=== PATIENT | male | born 1945 | race Caucasian/White ===

== ENCOUNTER 2020-11-01 13:25 | Inpatient (IN) | payer OTHER, MEDICARE ==
[~2020-11-01] VITALS: Ht 172.7 cm; Wt 79.4 kg
[~2020-11-01 13:25] MED LIST: CARV6.25 PO; CELE200 PO; CYCL10 PO; HYDCHL25 PO; METF500 PO; SIMV40 PO
[2020-11-01] MEDS ORDERED: ASCO500 PO (15:50)
[2020-11-01] MEDS ORDERED: Aspirin EC81 MG PO (15:50)
[2020-11-01] MEDS ORDERED: THERA-D2000 UNIT PO (15:51)
[2020-11-01] MEDS ORDERED: CARV3.125 PO (15:51)
[2020-11-01] MEDS ORDERED: Vitamin B-121000 MCG PO (15:51)
[2020-11-01] MEDS ORDERED: JARDIANCE25 MG PO (15:51)
[2020-11-01] MEDS ORDERED: FAMO40 PO (15:52)
[2020-11-01] MEDS ORDERED: FERROUS GLUCON324 M2 PO (16:05)
[2020-11-01] MEDS ORDERED: HYDROCHLOROTH12.5 MG PO (16:05)
[2020-11-01] MEDS ORDERED: GABA300 PO (16:05)
[2020-11-01] MEDS ORDERED: MAGNESIUM OXID500 MG PO (16:06)
[2020-11-01] MEDS ORDERED: METF500 PO (16:06)
[2020-11-01 16:22] LABS: BASOPHILS ABSOLUTE AUTO 0.06 K/mm3 (0.00-0.23); BASOPHILS PERCENT AUTO 0 % (0-2); EOSINOPHILS ABSOLUTE AUTO 0.02 K/mm3 (0.00-0.68); EOSINOPHILS PERCENT AUTO 0 % (0-6); Hematocrit 43.8 % (37.0-53.0); Hemoglobin 14.5 g/dL (13.5-17.5); IMMATURE GRAN ABSOLUTE AUTO 0.18 K/mm3 (0.00-0.10); IMMATURE GRAN PERCENT AUTO 1 % (0-1); LYMPHOCYTES ABSOLUTE AUTO 1.06 K/mm3 (0.84-5.20); LYMPHOCYTES PERCENT AUTO 5 % (21-46); MONOCYTES ABSOLUTE AUTO 1.73 K/mm3 (0.16-1.47); MONOCYTES PERCENT AUTO 8 % (4-13); Mean Corpuscular HGB 28.7 pg (26.0-34.0); Mean Corpuscular HGB Conc 33.1 g/dL (31.5-36.5); Mean Corpuscular Volume 87 fL (80-100); Mean Platelet Volume 11.5 fL (9.1-12.4); NEUTROPHILS ABSOLUTE AUTO 18.18 K/mm3 (1.96-9.15); NEUTROPHILS PERCENT AUTO 86 % (41-73); Platelet Count 174 K/mm3 (150-400); RDW Coefficient Variation 14.5 % (11.7-14.2); Red Blood Cell Count 5.06 M/mm3 (4.30-5.90); White Blood Cell Count 21.23 K/mm3 (4.00-11.30)
[2020-11-01 16:33] LABS: Alanine Aminotransfer (ALT/SGP 17 U/L (12-78); Albumin, Blood 3.8 g/dL (3.4-5.0); Albumin/Globulin Ratio 0.9 (0.8-1.8); Alk Phos 53 U/L (50-136); Anion Gap 13 mmol/L (6-16); Aspartate Aminotrans (AST/SGOT 12 U/L (12-37); Blood Urea Nitrogen 17 mg/dL (8-24); Bun/Creatinine Ratio 20.6 (12.0-20.0); CO2, Blood 26 mmol/L (21-32); Calcium, Blood 10.1 mg/dL (8.5-10.1); Chloride, Blood 96 mmol/L (98-108); Creatinine, Blood 0.82 mg/dL (0.60-1.20); Globulin, Blood 4.2 g/dL (2.2-4.0); Glomerular Filtration Rate >60 (60-); Glucose, Blood 201 mg/dL (70-99); Potassium, Blood 3.4 mmol/L (3.5-5.5); Sodium, Blood 135 mmol/L (136-145)
[2020-11-01 17:53] LABS: International Normalized Ratio 1.07; Prothrombin Time Results 11.4 Sec (9.7-11.5)
[2020-11-01] MEDS ORDERED: OMEP20ER PO (21:20)
[2020-11-01 21:58] LABS: Source, Urine Clean Catch
[2020-11-01 22:02] LABS: Bilirubin, Urine Neg (Neg); Blood, Urine 2+ (Neg); Glucose Qualitative, Urine 4+ (Neg); Ketones, Urine 4+ (Neg); Leukocyte Esterase, Urine Neg (Neg); Nitrite, Urine Neg (Neg); Protein, Urine 2+ (Neg); Specific Gravity, Urine 1.015 (1.003-1.022); Urobilinogen, Urine NORM (Normal)
[2020-11-01 22:03] LABS: Appearance, Urine Clear (Clear); Color, Urine Yellow (P-Yellow)
[2020-11-01 22:05] LABS: Influenza A, PCR Negative (NEGATIVE); Influenza B, PCR Negative (NEGATIVE); Resp Syncytial Virus, PCR Negative (NEGATIVE); SARS-Cov-2 (COVID-19) PCR, MMC Negative (NEGATIVE)
[2020-11-01 22:09] LABS: Bacteria Few /hpf; Red Blood Cells, Urine 0-2 /hpf (0-2); Squamous Epithelial Cells Not Seen /hpf (Few); White Blood Cells, Urine 0-2 /hpf (0-5)
--- NOTE | 2020-11-01 23:51 | NUR ---
ACCORDING TO PCU WORK ORDER [employer], THIS PATIENT WENT INTO ATRIAL FLUTTER FOR 5 MINUTES. THE HIGHEST RATE WAS 141 BPM IN THOSE 5 MINUTES. PATIENT WAS GIVEN AN EKG AND INCREASED OXYGEN TO 3L. PATIENT REPORTED HAVING SHORTNESS OF BREATH DURING THOSE [address] WNITERS WAS NOTIFIED AND WANTS TROPONIN LABS DRAWN WITH AM LABS. AFTER EKG PATIENT HOB WAS ALSO RAISED TO AT LEAST 30 DEGREES. PATIENT SINCE ALREADY REPORTED LESS SHORTNESS OF BREATH. CALL LIGHT WITHIN REACH.
--- NOTE | 2020-11-02 03:52 | NUR ---
SHIFT SUMMARY: CHOLECYSTITIS WITH CHOLELITHIASIS PATIENT WHILE AWAKE IS ALERT AND ORIENTED X4. HOWEVER, HE HAS BEEN TRYING TO SLEEP MAJORITY OF THE NIGHT BUT IS EASILY AROUSABLE. PATIENT IS ON 3L OXYGEN AND IS ON TELE (SEE PREVIOUS NOTE FOR MORE DETAIL). PAIN IS CONTROLLED WITH 50 MCG OF FENT. HIS RUQ IS TENDER TO TOUCH. HE IS VOIDING YELLOW URINE IN URNAL. PATIENTS FAMILY HAS BEEN NOTIFIED EARLIER IN SHIFT OF THIS NEW PLAN SINCE HE WAS SUPPOSED TO GO HOME YESTERDAY. CALL LIGHT IS WITHIN REACH. PATIENT IS CURRENTLY LAYING ON BED. HE HAS BEEN NPO SINCE MIDNIGHT. BIOX IS IN PLACE. HE IS A SBA TO BEDSIDE TO HELP USE URNAL. THE PLAN IS TO HAVE DR. HEARD COME IN TODAY TO DISCUSS POSSIBLE SOLUTIONS TO HIS PAIN, AND TO CONTINUE IV ABX AND FLUIDS.
[2020-11-02 04:49] LABS: BASOPHILS ABSOLUTE AUTO 0.03 K/mm3 (0.00-0.23); BASOPHILS PERCENT AUTO 0 % (0-2); EOSINOPHILS PERCENT AUTO 0 % (0-6); Hematocrit 38.3 % (37.0-53.0); Hemoglobin 12.7 g/dL (13.5-17.5); IMMATURE GRAN ABSOLUTE AUTO 0.21 K/mm3 (0.00-0.10); IMMATURE GRAN PERCENT AUTO 1 % (0-1); LYMPHOCYTES ABSOLUTE AUTO 0.46 K/mm3 (0.84-5.20); LYMPHOCYTES PERCENT AUTO 3 % (21-46); MONOCYTES ABSOLUTE AUTO 0.96 K/mm3 (0.16-1.47); MONOCYTES PERCENT AUTO 7 % (4-13); Mean Corpuscular HGB 29.2 pg (26.0-34.0); Mean Corpuscular HGB Conc 33.2 g/dL (31.5-36.5); Mean Corpuscular Volume 88 fL (80-100); Mean Platelet Volume 10.7 fL (9.1-12.4); NEUTROPHILS PERCENT AUTO 89 % (41-73); Platelet Count 166 K/mm3 (150-400); RDW Coefficient Variation 14.6 % (11.7-14.2); RDW Standard Deviation 47.3 fL (35.1-46.3); Red Blood Cell Count 4.35 M/mm3 (4.30-5.90); White Blood Cell Count 14.86 K/mm3 (4.00-11.30)
[2020-11-02 05:25] LABS: Anion Gap 12 mmol/L (6-16); Blood Urea Nitrogen 17 mg/dL (8-24); Bun/Creatinine Ratio 20.6 (12.0-20.0); CO2, Blood 25 mmol/L (21-32); Calcium, Blood 8.5 mg/dL (8.5-10.1); Chloride, Blood 101 mmol/L (98-108); Creatinine, Blood 0.83 mg/dL (0.60-1.20); Glomerular Filtration Rate >60 (60-); Glucose, Blood 153 mg/dL (70-99); Potassium, Blood 3.5 mmol/L (3.5-5.5); Sodium, Blood 138 mmol/L (136-145)
[2020-11-02 05:33] LABS: Troponin I 0.746 ng/mL (0.000-0.040)
--- NOTE | 2020-11-02 06:37 | NUR ---
AFTER HAVING A FLUTTER ACCORDING TO PCU BAR STAFF, PATIENT HAS BEEN SLEEPING MOST OF THE SHIFT. HE IS STILL EASILY AROUSABLE WHEN HE WAS SLEEPING. HE DID NOT COMPLAIN OF SHORTNESS OF BREATH OR CHEST PAIN/PRESSURE THE REST OF THE NIGHT. HE DID HAVE A CRITICAL LAB VALUE OF 0.746 OF TROPONIN COME IN FROM LAB AT 0530 TODAY. HOSPITALIST WAS NOTIFIED AND PROVIDED NO FURTHER INSTRUCTIONS/ORDERS WHEN CALLED. PATIENT IS CURRENTLY SLEEPING LAYING DOWN IN BED. CALL LIGHT WITHIN REACH. CALLS APPROPRIATELY.
--- NOTE | 2020-11-02 14:22 | NUR ---
Echocardiogram completed.
--- NOTE | 2020-11-02 15:00 | NUR ---
PT [facility]IV[facility] WITH LEFT RADIAL TR BAND. SITE WITH NO BLEEDING, BRUISING OR SWELLING NOTED. PLAN FOR TRANSFER TO [facility]. AWAITING WORD FROM FACILITY FOR BED PLACEMENT. DR AND STAFF ATTEMPTED TO CONTACT PT'S FAMILY TO UPDATE FURTHER. VSS AT THIS TIME.
--- NOTE | 2020-11-02 18:41 | NUR ---
CONTACTED PT'S SON STEFFANY AND GAVE HIM AN UPDATE OF WHAT WAS GOING ON AND THE PLAN TO TRANSFER PT TO [facility] [place]. PT'S TR BAND DEFLATED WITH NO SIGN OF BRUISING OR BLEEDING. BAND REMAINS IN PLACE TO WAIT THE ALOTTED HOUR. REPORT CALLED TO [facility] FOR BRITT HEADLEY. BRITT IS AWARE OF PT'S HISTORY AND PLAN FOR CABG AND POSSIBLE DRAIN FOR CHOLECYSTITIS. HEPARIN GTT RUNNING PER DR CANTU'S INSTRUCTION AND PHARMACY RECOMMENDATION. VSS. PT TRANSFERRED TO [facility] AND TRANSPORTED OUT VIA EMS STAFF.
== END 2020-11-02 18:35 | disposition short-term general hospital (02) | DRG 871 ==
LOC: ER 13:25 → SURS 13:26 → PCU 11-02 14:20
PROVIDERS: Nurse Practitioner Acute Care; Physician Assistant; ADMIT Internal Medicine
PROC: B2111ZZ Fluoroscopy of Multiple Coronary Arteries using Low Osmolar Contrast (ICD-10-PCS; principal; 2020-11-02)
DX: A41.9 Sepsis, unspecified organism (principal); I21.4 Non-ST elevation (NSTEMI) myocardial infarction; K81.0 Acute cholecystitis; N17.9 Acute kidney failure, unspecified; E87.1 Hypo-osmolality and hyponatremia; Z79.84 Long term (current) use of oral hypoglycemic drugs; E87.6 Hypokalemia; I25.10 Atherosclerotic heart disease of native coronary artery without angina pectoris; Z95.5 Presence of coronary angioplasty implant and graft; Z87.891 Personal history of nicotine dependence; Z79.82 Long term (current) use of aspirin; N18.30 Chronic kidney disease, stage 3 unspecified; E11.22 Type 2 diabetes mellitus with diabetic chronic kidney disease; I35.0 Nonrheumatic aortic (valve) stenosis; Z20.822 Contact with and (suspected) exposure to COVID-19
CPT/HCPCS: 0241U; 36415; 80048; 80053; 81001; 82947; 83605; 83690; 84484; 85025; 85347; 85610; 85730; 86900; 86901; 87040; 93005; 93010; 93306; 93454; 94762; 96365; 96366; 96367; 96375; 96376; 99152; 99153; 99285-25; A9270; C1769; C1894; G0378; J0295; J1644; J2250; J2270; J2405; J3010; J3480; J7030; J7050; Q9967

== ENCOUNTER 2020-11-21 15:17 | Inpatient (IN) | payer OTHER, MEDICARE ==
[~2020-11-21] VITALS: Ht 172.7 cm; Wt 69.5 kg
[~2020-11-21 15:17] MED LIST changes: +ASCO500 PO; +Aspirin EC81 MG PO; +CARV3.125 PO; +FAMO40 PO; +FERROUS GLUCON324 M2 PO; +GABA300 PO; +HYDROCHLOROTH12.5 MG PO; +JARDIANCE25 MG PO; +MAGNESIUM OXID500 MG PO; +OMEP20ER PO; +THERA-D2000 UNIT PO; +Vitamin B-121000 MCG PO
[2020-11-21 15:50] LABS: BASOPHILS ABSOLUTE AUTO 0.12 K/mm3 (0.00-0.23); BASOPHILS PERCENT AUTO 1 % (0-2); EOSINOPHILS ABSOLUTE AUTO 0.23 K/mm3 (0.00-0.68); EOSINOPHILS PERCENT AUTO 2 % (0-6); Hematocrit 31.8 % (37.0-53.0); Hemoglobin 10.2 g/dL (13.5-17.5); IMMATURE GRAN ABSOLUTE AUTO 0.04 K/mm3 (0.00-0.10); IMMATURE GRAN PERCENT AUTO 0 % (0-1); LYMPHOCYTES ABSOLUTE AUTO 1.73 K/mm3 (0.84-5.20); LYMPHOCYTES PERCENT AUTO 17 % (21-46); MONOCYTES ABSOLUTE AUTO 0.72 K/mm3 (0.16-1.47); MONOCYTES PERCENT AUTO 7 % (4-13); Mean Corpuscular HGB 29.4 pg (26.0-34.0); Mean Corpuscular HGB Conc 32.1 g/dL (31.5-36.5); Mean Corpuscular Volume 92 fL (80-100); NEUTROPHILS ABSOLUTE AUTO 7.36 K/mm3 (1.96-9.15); NEUTROPHILS PERCENT AUTO 72 % (41-73); Platelet Count 333 K/mm3 (150-400); RDW Coefficient Variation 15.3 % (11.7-14.2); RDW Standard Deviation 50.5 fL (35.1-46.3); Red Blood Cell Count 3.47 M/mm3 (4.30-5.90)
[2020-11-21 18:23] LABS: Albumin, Blood 3.3 g/dL (3.4-5.0); Albumin/Globulin Ratio 0.9 (0.8-1.8); Bilirubin, Total 0.6 mg/dL (0.1-1.0); Bun/Creatinine Ratio 17.5 (12.0-20.0); Calcium, Blood 9.1 mg/dL (8.5-10.1); Creatinine, Blood 2.86 mg/dL (0.60-1.20); Globulin, Blood 3.8 g/dL (2.2-4.0); Potassium, Blood 5.7 mmol/L (3.5-5.5); Total Protein, Blood 7.1 g/dL (6.4-8.2)
[2020-11-21] MEDS ORDERED: ATOR40TA PO (18:50)
[2020-11-21] MEDS ORDERED: FUROSEMIDE40 MG PO (18:50)
[2020-11-21] MEDS ORDERED: LISI5 PO (18:51)
[2020-11-21] MEDS ORDERED: Potassium Chlo20 ME1 PO (18:51)
[2020-11-22 05:37] LABS: BASOPHILS ABSOLUTE AUTO 0.08 K/mm3 (0.00-0.23); BASOPHILS PERCENT AUTO 1 % (0-2); EOSINOPHILS ABSOLUTE AUTO 0.34 K/mm3 (0.00-0.68); EOSINOPHILS PERCENT AUTO 4 % (0-6); Hematocrit 28.8 % (37.0-53.0); Hemoglobin 9.2 g/dL (13.5-17.5); IMMATURE GRAN ABSOLUTE AUTO 0.04 K/mm3 (0.00-0.10); IMMATURE GRAN PERCENT AUTO 0 % (0-1); LYMPHOCYTES ABSOLUTE AUTO 2.01 K/mm3 (0.84-5.20); LYMPHOCYTES PERCENT AUTO 22 % (21-46); MONOCYTES ABSOLUTE AUTO 0.69 K/mm3 (0.16-1.47); MONOCYTES PERCENT AUTO 7 % (4-13); Mean Corpuscular HGB 29.3 pg (26.0-34.0); Mean Corpuscular HGB Conc 31.9 g/dL (31.5-36.5); Mean Corpuscular Volume 92 fL (80-100); Mean Platelet Volume 10.6 fL (9.1-12.4); NEUTROPHILS ABSOLUTE AUTO 6.18 K/mm3 (1.96-9.15); NEUTROPHILS PERCENT AUTO 66 % (41-73); Platelet Count 270 K/mm3 (150-400); RDW Coefficient Variation 15.1 % (11.7-14.2); RDW Standard Deviation 50.6 fL (35.1-46.3); Red Blood Cell Count 3.14 M/mm3 (4.30-5.90); White Blood Cell Count 9.34 K/mm3 (4.00-11.30)
[2020-11-22 05:59] LABS: Albumin, Blood 2.9 g/dL (3.4-5.0); Anion Gap 10 mmol/L (6-16); Blood Urea Nitrogen 58 mg/dL (8-24); Bun/Creatinine Ratio 19.5 (12.0-20.0); CO2, Blood 23 mmol/L (21-32); Calcium, Blood 8.7 mg/dL (8.5-10.1); Chloride, Blood 106 mmol/L (98-108); Creatinine, Blood 2.97 mg/dL (0.60-1.20); Glomerular Filtration Rate 22 (60-); Glucose, Blood 96 mg/dL (70-99); Phosphorus, Blood 5.4 mg/dL (2.5-4.9); Potassium, Blood 4.5 mmol/L (3.5-5.5); Sodium, Blood 139 mmol/L (136-145)
--- NOTE | 2020-11-22 07:25 | NUR ---
pt new admit at 2154. a/o x4. pt denies sob, dizziness and pain. tele running sr in the 70's per television production assistant josette. pt hypotensive upon admit. hospitalist key ordered 500ml boulus. bp has come up after boulous given. currently has cont ns at 75ml/hr. pt has gallbladder drain and drainage bag on right upper abd. it is draining dark green drainage. drainage site is c.d.i with dressing secured around tube site. pt is standby assist to the bathroom. call light within reach. report given to oncoming rn.
--- NOTE | 2020-11-22 19:32 | NUR ---
SHIFT SUMMARY: NO ACUTE CHANGES TO REPORT THIS SHIFT. PT A&O; TJ AND COOPERATIVE WITH CARE. NO C/O PAIN THIS SHIFT. BILE DRAIN IN PLACE TO RUQ; NO DRAINAGE NOTED THIS SHIFT; PER HOSPITALIST (DR HOUSTON) SURGICAL CONSULT PLACED (DR ESQUIVEL-DATA CONVERSION DEVELOPER); AWAITING SURGICAL EVAL. REHYDRATION CONTINUING. REPORT GIVEN TO ONCOMING RN.
[2020-11-23 04:51] LABS: Bun/Creatinine Ratio 22.1 (12.0-20.0); Calcium, Blood 9.1 mg/dL (8.5-10.1); Creatinine, Blood 2.44 mg/dL (0.60-1.20); Potassium, Blood 4.5 mmol/L (3.5-5.5)
--- NOTE | 2020-11-23 05:39 | NUR ---
SHIFT SUMMARY NO ACUTE CHANGES T/O SHIFT, CALM AND COOPERATIVE WITH CARE, A&Ox4. PT SLEPT T/O MOST OF THE NIGHT AND APPEARED TO BE IN NO DISTRESS. PT CONCERNED REGARDING HIS GALLBLADDER DRAIN NOT DRAINING. CYNTHIA WAS NOTIFIED BY DAY SHIFT NURSE AND HE HAS STILL YET TO COME SEE PT, WILL INFORM DAY SHIFT NURSE TO FOLLOW UP. PT CURRENTLY HAS NS RUNNING @ 75 ML/HR. PT IS SLEEPING AT THIS TIME, APPEARS TO BE IN NO DISTRESS. CALL LIGHT WITHIN REACH.
--- NOTE | 2020-11-23 18:46 | NUR ---
SHIFT SUMMARY- PT IS A/O, PLESANT AND COOPERATIVE. HE IS EATING AND DRINKING WELL. DR. JIMENEZ CONSULTED AND REPORTED THAT HE WAS NOT CONCERNED ABOUT THE BILE DRAIN AT THIS TIME. WILL CONTINUE TO MONITOR. HIS BLOOD PRESSURES HAVE REMAINED STABLE THIS SHIFT. HE IS RECIEVING IV FLUID THERAPY. HE IS USING THE URINAL AT BEDSIDE. HIS DAUGHTER VISITED THIS SHIFT. HIS BED IS IN THE LOW POSITION AND CALL LIGHT IS WITHIN REACH.
--- NOTE | 2020-11-24 04:53 | NUR ---
SHIFT SUMMARY NO ACUTE CHANGES T/O SHIFT, A&Ox4, CALM AND COOPERATIVE WITH CARE. NS RUNNING @ 75 ML/HR. NO COMPLAINTS T/O SHIFT AND APPEARED TO BE IN NO DISTRESS. PT SLEPT THROUGH MOST OF SHIFT. PT THANKFUL AND RELIEVED FOR MARITZA COMING IN EARLIER TODAY TO OBSERVE HIS GALLBLADDER DRAIN. PT POSSIBLE TO DC PENDNING RENAL LAB RESULTS. PT IS CURRENTLY RESTING IN BED WITH CALL LIGHT WITHIN REACH.
[2020-11-24 05:11] LABS: Albumin, Blood 2.9 g/dL (3.4-5.0); Albumin/Globulin Ratio 0.9 (0.8-1.8); Bilirubin, Total 0.5 mg/dL (0.1-1.0); Bun/Creatinine Ratio 22.6 (12.0-20.0); Calcium, Blood 9.4 mg/dL (8.5-10.1); Creatinine, Blood 1.55 mg/dL (0.60-1.20); Globulin, Blood 3.4 g/dL (2.2-4.0); Potassium, Blood 4.3 mmol/L (3.5-5.5); Total Protein, Blood 6.3 g/dL (6.4-8.2)
[2020-11-24] MEDS ORDERED: Vitamin B-121000 MCG PO (12:54)
[2020-11-24] MEDS ORDERED: FERSU300 PO (12:55)
--- NOTE | 2020-11-24 14:56 | NUR ---
PT DISCHARGED FROM THE UNIT. DISCHARGE INSTRUCTIONS REVIEWED. INSTRUCTED ON FOLLOW UP APTS. IV REMOVED. MEDICATIONS FAXED TO [facility]. PT LEFT VIA WHEELCHAIR. DAUGHTER TO DRIVE HOME
== END 2020-11-24 14:29 | disposition home or self-care (01) | DRG 683 ==
LOC: ER 15:17 → MEDS 21:45
PROVIDERS: Internal Medicine; Nurse Practitioner Acute Care; Physician Assistant; ADMIT Internal Medicine
DX: N17.9 Acute kidney failure, unspecified (principal); K81.0 Acute cholecystitis; T85.618A Breakdown (mechanical) of other specified internal prosthetic devices, implants and grafts, initial encounter; E11.22 Type 2 diabetes mellitus with diabetic chronic kidney disease; N18.30 Chronic kidney disease, stage 3 unspecified; E86.0 Dehydration; I25.10 Atherosclerotic heart disease of native coronary artery without angina pectoris; E11.40 Type 2 diabetes mellitus with diabetic neuropathy, unspecified; E66.9 Obesity, unspecified; K21.9 Gastro-esophageal reflux disease without esophagitis; K59.00 Constipation, unspecified; Z95.1 Presence of aortocoronary bypass graft; Z95.5 Presence of coronary angioplasty implant and graft; Z87.891 Personal history of nicotine dependence; Z79.899 Other long term (current) drug therapy; Z79.84 Long term (current) use of oral hypoglycemic drugs; Z79.82 Long term (current) use of aspirin; Z68.23 Body mass index [BMI] 23.0-23.9, adult
CPT/HCPCS: 36415; 76770; 80048; 80053; 80069; 82947; 83605; 85025; 93005; 93010; 96360; 96361; 96372; 99285-25; A9270; G0378; J1644; J7030

== ENCOUNTER 2020-11-26 12:10 | Emergency (ER) | payer OTHER, MEDICARE ==
[~2020-11-26] VITALS: Ht 172.7 cm; Wt 69.8 kg
[~2020-11-26 12:10] MED LIST changes: +ATOR40TA PO; +FERSU300 PO; +FUROSEMIDE40 MG PO; +LISI5 PO; +Potassium Chlo20 ME1 PO
[2020-11-26 12:52] LABS: BASOPHILS ABSOLUTE AUTO 0.08 K/mm3 (0.00-0.23); BASOPHILS PERCENT AUTO 1 % (0-2); EOSINOPHILS PERCENT AUTO 4 % (0-6); Hematocrit 34.5 % (37.0-53.0); Hemoglobin 10.9 g/dL (13.5-17.5); IMMATURE GRAN ABSOLUTE AUTO 0.03 K/mm3 (0.00-0.10); IMMATURE GRAN PERCENT AUTO 0 % (0-1); LYMPHOCYTES ABSOLUTE AUTO 1.55 K/mm3 (0.84-5.20); LYMPHOCYTES PERCENT AUTO 16 % (21-46); MONOCYTES ABSOLUTE AUTO 0.65 K/mm3 (0.16-1.47); MONOCYTES PERCENT AUTO 7 % (4-13); Mean Corpuscular HGB 29.2 pg (26.0-34.0); Mean Corpuscular HGB Conc 31.6 g/dL (31.5-36.5); Mean Corpuscular Volume 93 fL (80-100); Mean Platelet Volume 10.6 fL (9.1-12.4); NEUTROPHILS ABSOLUTE AUTO 7.18 K/mm3 (1.96-9.15); NEUTROPHILS PERCENT AUTO 73 % (41-73); Platelet Count 223 K/mm3 (150-400); RDW Standard Deviation 51.2 fL (35.1-46.3); Red Blood Cell Count 3.73 M/mm3 (4.30-5.90); White Blood Cell Count 9.89 K/mm3 (4.00-11.30)
[2020-11-26 13:12] LABS: Albumin, Blood 3.3 g/dL (3.4-5.0); Albumin/Globulin Ratio 0.8 (0.8-1.8); Bilirubin, Total 0.6 mg/dL (0.1-1.0); Bun/Creatinine Ratio 18.8 (12.0-20.0); Calcium, Blood 9.9 mg/dL (8.5-10.1); Creatinine, Blood 1.33 mg/dL (0.60-1.20); Globulin, Blood 3.9 g/dL (2.2-4.0); Potassium, Blood 4.8 mmol/L (3.5-5.5); Total Protein, Blood 7.2 g/dL (6.4-8.2); Troponin I 0.232 ng/mL (0.000-0.040)
[2020-11-26] MEDS ORDERED: Halcion0.25 MG PO (15:27)
== END 2020-11-26 15:55 | disposition home or self-care (01) ==
LOC: ER 12:10
PROVIDERS: Physician Assistant
DX: I95.9 Hypotension, unspecified (principal); G47.00 Insomnia, unspecified; E11.9 Type 2 diabetes mellitus without complications; I25.2 Old myocardial infarction; I25.810 Atherosclerosis of coronary artery bypass graft(s) without angina pectoris; Z95.1 Presence of aortocoronary bypass graft; Z87.891 Personal history of nicotine dependence; Z79.899 Other long term (current) drug therapy; Z79.82 Long term (current) use of aspirin
CPT/HCPCS: 36415; 71046; 80053; 84484; 85025; 93005; 93010; 96360; 96361; 99284-25; J7030

== ENCOUNTER 2020-12-17 17:49 | Emergency (ER) | payer OTHER ==
[~2020-12-17] VITALS: Ht 172.7 cm; Wt 70.8 kg
[~2020-12-17 17:49] MED LIST changes: +Halcion0.25 MG PO
[2020-12-17 19:19] LABS: BASOPHILS ABSOLUTE AUTO 0.08 K/mm3 (0.00-0.23); BASOPHILS PERCENT AUTO 1 % (0-2); EOSINOPHILS ABSOLUTE AUTO 0.91 K/mm3 (0.00-0.68); EOSINOPHILS PERCENT AUTO 12 % (0-6); Hematocrit 34.7 % (37.0-53.0); Hemoglobin 11.4 g/dL (13.5-17.5); IMMATURE GRAN ABSOLUTE AUTO 0.03 K/mm3 (0.00-0.10); IMMATURE GRAN PERCENT AUTO 0 % (0-1); LYMPHOCYTES ABSOLUTE AUTO 1.38 K/mm3 (0.84-5.20); LYMPHOCYTES PERCENT AUTO 18 % (21-46); MONOCYTES ABSOLUTE AUTO 0.68 K/mm3 (0.16-1.47); MONOCYTES PERCENT AUTO 9 % (4-13); Mean Corpuscular HGB 30.1 pg (26.0-34.0); Mean Corpuscular HGB Conc 32.9 g/dL (31.5-36.5); Mean Corpuscular Volume 92 fL (80-100); Mean Platelet Volume 10.3 fL (9.1-12.4); NEUTROPHILS ABSOLUTE AUTO 4.57 K/mm3 (1.96-9.15); NEUTROPHILS PERCENT AUTO 60 % (41-73); Platelet Count 218 K/mm3 (150-400); RDW Coefficient Variation 14.6 % (11.7-14.2); Red Blood Cell Count 3.79 M/mm3 (4.30-5.90); White Blood Cell Count 7.65 K/mm3 (4.00-11.30)
[2020-12-17 19:42] LABS: Alanine Aminotransfer (ALT/SGP 38 U/L (12-78); Albumin, Blood 3.1 g/dL (3.4-5.0); Albumin/Globulin Ratio 0.9 (0.8-1.8); Alk Phos 156 U/L (50-136); Anion Gap 2 mmol/L (6-16); Aspartate Aminotrans (AST/SGOT 24 U/L (12-37); Bilirubin, Total 0.2 mg/dL (0.1-1.0); Blood Urea Nitrogen 18 mg/dL (8-24); Bun/Creatinine Ratio 19.4 (12.0-20.0); CO2, Blood 31 mmol/L (21-32); Chloride, Blood 107 mmol/L (98-108); Creatinine, Blood 0.93 mg/dL (0.60-1.20); Globulin, Blood 3.6 g/dL (2.2-4.0); Glomerular Filtration Rate >60 (60-); Glucose, Blood 149 mg/dL (70-99); Potassium, Blood 4.3 mmol/L (3.5-5.5); Sodium, Blood 140 mmol/L (136-145); Total Protein, Blood 6.7 g/dL (6.4-8.2)
== END 2020-12-17 21:17 | disposition home or self-care (01) ==
LOC: ER 17:49
PROVIDERS: Physician Assistant
DX: R10.9 Unspecified abdominal pain (principal); E11.9 Type 2 diabetes mellitus without complications; I25.2 Old myocardial infarction; I25.810 Atherosclerosis of coronary artery bypass graft(s) without angina pectoris; Z87.891 Personal history of nicotine dependence; Z79.899 Other long term (current) drug therapy; Z79.82 Long term (current) use of aspirin
CPT/HCPCS: 36415; 74176; 80053; 85025; 99283-25

== ENCOUNTER 2021-03-17 06:47 | Emergency (ER) | payer OTHER, MEDICARE ==
[~2021-03-17] VITALS: Ht 172.7 cm; Wt 72.6 kg
[2021-03-17 07:28] LABS: Source, Urine Clean Catch
[2021-03-17 07:31] LABS: Appearance, Urine Clear (Clear); Blood, Urine Neg (Neg); Color, Urine Yellow (P-Yellow); Glucose Qualitative, Urine 4+ (Neg); Ketones, Urine Neg (Neg); Leukocyte Esterase, Urine Neg (Neg); Nitrite, Urine Neg (Neg); Protein, Urine Neg (Neg); Specific Gravity, Urine 1.015 (1.003-1.022); Urobilinogen, Urine 1+ (Normal)
[2021-03-17 07:39] LABS: Bilirubin, Urine 1+ (Neg)
[2021-03-17 09:14] LABS: Alanine Aminotransfer (ALT/SGP 137 U/L (12-78); Albumin/Globulin Ratio 0.7 (0.8-1.8); Alk Phos 278 U/L (50-136); Anion Gap 7 mmol/L (6-16); Aspartate Aminotrans (AST/SGOT 66 U/L (12-37); BASOPHILS ABSOLUTE AUTO 0.04 K/mm3 (0.00-0.23); BASOPHILS PERCENT AUTO 1 % (0-2); Bilirubin, Total 1.7 mg/dL (0.1-1.0); Blood Urea Nitrogen 24 mg/dL (8-24); Bun/Creatinine Ratio 21.4 (12.0-20.0); CO2, Blood 29 mmol/L (21-32); Calcium, Blood 9.4 mg/dL (8.5-10.1); Chloride, Blood 100 mmol/L (98-108); Creatinine, Blood 1.12 mg/dL (0.60-1.20); EOSINOPHILS ABSOLUTE AUTO 0.61 K/mm3 (0.00-0.68); EOSINOPHILS PERCENT AUTO 8 % (0-6); Globulin, Blood 4.5 g/dL (2.2-4.0); Glomerular Filtration Rate >60 (60-); Glucose, Blood 192 mg/dL (70-99); Hematocrit 37.5 % (37.0-53.0); Hemoglobin 12.6 g/dL (13.5-17.5); IMMATURE GRAN ABSOLUTE AUTO 0.05 K/mm3 (0.00-0.10); IMMATURE GRAN PERCENT AUTO 1 % (0-1); LYMPHOCYTES ABSOLUTE AUTO 1.17 K/mm3 (0.84-5.20); LYMPHOCYTES PERCENT AUTO 15 % (21-46); MONOCYTES ABSOLUTE AUTO 0.58 K/mm3 (0.16-1.47); MONOCYTES PERCENT AUTO 8 % (4-13); Mean Corpuscular HGB 29.2 pg (26.0-34.0); Mean Corpuscular HGB Conc 33.6 g/dL (31.5-36.5); Mean Corpuscular Volume 87 fL (80-100); Mean Platelet Volume 10.7 fL (9.1-12.4); NEUTROPHILS ABSOLUTE AUTO 5.14 K/mm3 (1.96-9.15); NEUTROPHILS PERCENT AUTO 68 % (41-73); Platelet Count 164 K/mm3 (150-400); Potassium, Blood 3.4 mmol/L (3.5-5.5); RDW Coefficient Variation 13.6 % (11.7-14.2); RDW Standard Deviation 43.6 fL (35.1-46.3); Red Blood Cell Count 4.32 M/mm3 (4.30-5.90); Sodium, Blood 136 mmol/L (136-145); Total Protein, Blood 7.5 g/dL (6.4-8.2); White Blood Cell Count 7.59 K/mm3 (4.00-11.30)
== END 2021-03-17 10:28 | disposition home or self-care (01) ==
LOC: ER 06:47
PROVIDERS: Emergency Medicine
DX: K85.90 Acute pancreatitis without necrosis or infection, unspecified (principal); R94.5 Abnormal results of liver function studies; E11.9 Type 2 diabetes mellitus without complications; I25.2 Old myocardial infarction; I25.810 Atherosclerosis of coronary artery bypass graft(s) without angina pectoris; Z95.1 Presence of aortocoronary bypass graft; Z79.899 Other long term (current) drug therapy
CPT/HCPCS: 36415; 80053; 81003; 83690; 85025; 99283